=== PATIENT | female | born 1985 | race Caucasian/White ===

== ENCOUNTER 2017-03-19 11:26 | Emergency (ER) | payer MEDICAID ==
[~2017-03-19] VITALS: Ht 154.9 cm; Wt 59.1 kg
[2017-03-19 11:34] VITALS: BP 128/69; TEMP 98.1
[2017-03-19 12:45] LABS: BASO # 0.1 (0.0-0.2); BASO % 0.7 % (0.0-2.0); EOS # 0.3 (0.0-0.7); EOS % 3.7 % (0-4.0); GRAN # 3.8 (1.4-6.5); GRAN % 56.1 % (42.2-75.2); HEMATOCRIT 39.8 % (37.0-47.0); LYMPH # 2.3 (1.2-3.4); LYMPH % 33.2 % (20.0-51.0); MEAN CELL VOLUME 84 fl (80.0-100.0); MEAN CORPUSCULAR HEMOGLOBIN 28 pg (27.0-31.0); MEAN CORPUSCULAR HGB CONC 33 g/dl (33.0-37.0); MEAN PLATELET VOLUME 10.9 fl (7.4-10.4); MONO # 0.4 (0.1-0.6); MONO % 6.2 % (1.7-9.3); PLATELET COUNT 244 K/mm3 (130-400); RED BLOOD COUNT 4.73 M/mm3 (4.10-5.30); REDCELL DISTRIBUTION WIDTH-CV 13.6 % (11.5-14.5); WHITE BLOOD COUNT 6.8 K/mm3 (4.8-10.8)
[2017-03-19 12:48] LABS: PH 7 (5-8); SQUAMOUS EPITHELIAL 0-2 /hpf; URINE APPEARANCE Clear; URINE BACTERIA None Seen /hpf; URINE BILIRUBIN Negative (NEGATIVE); URINE BLOOD Negative (NEGATIVE); URINE COLOR Yellow; URINE GLUCOSE Negative (NEGATIVE); URINE KETONE Negative (NEGATIVE); URINE RBC 0-2 /hpf; URINE UROBILINOGEN Negative (NEGATIVE); URINE WBC 0-2 /hpf
[2017-03-19 13:06] LABS: ADJUSTED CALCIUM 8.6 mg/dL (8.4-10.2); ALBUMIN 4.2 gm/dL (3.5-5.0); BILIRUBIN,TOTAL 0.6 mg/dL (0.0-1.0); CALCIUM 8.8 mg/dL (8.4-10.2); CREATININE, serum 0.57 mg/dL (0.52-1.25); POTASSIUM 3.8 mmol/L (3.4-5.0); TOTAL PROTEIN 7.5 gm/dL (6.4-8.2)
[2017-03-19 13:20] VITALS: PULSE 77
== END 2017-03-19 13:21 | disposition home or self-care (01) ==
LOC: COL.ER 11:26
PROVIDERS: Physician Assistant
DX: R53.81 Other malaise (principal); R11.0 Nausea

== ENCOUNTER → 2019-02-17 | Outpatient (CLI) | payer MEDICAID | LOC: COL.RAD 09:56 | DX: M25.532 Pain in left wrist (principal) ==

== ENCOUNTER 2023-12-22 13:14 | Emergency (ER) | payer SELFPAY ==
[~2023-12-22] VITALS: Ht 152.4 cm; Wt 59.1 kg
[2023-12-22] MEDS ORDERED: Ketorolac 30 MG/ML VIAL IM ONE (15:00)
[2023-12-22 16:52] VITALS: BP 121/73; PULSE 55; TEMP 97.7
== END 2023-12-22 16:52 | disposition home or self-care (01) ==
LOC: COL.ER 13:14
DX: U07.1 COVID-19 (principal); R50.9 Fever, unspecified; R51.9 Headache, unspecified; M79.10 Myalgia, unspecified site; R05.9 Cough, unspecified; M54.2 Cervicalgia; M54.9 Dorsalgia, unspecified
CPT/HCPCS: J1885